=== PATIENT | female | born 1970 | race African-American/Black ===

== ENCOUNTER 2018-10-20 04:05 | Inpatient (IN) ==
[2018-10-20] MEDS ORDERED: FENTANYL IV ONE ×2 (04:43→06:30)
--- NOTE | 2018-10-20 04:48 | PROVIDER DOCUMENTATION ---
HPI-General Adult - General Chief Complaint: Chest Pain Stated Complaint: CHEST PAIN, TINGLING IN ARM/FACE Time Seen by Provider: 10/20/18 04:29 Source: patient Allergies/Adverse Reactions: Patient Allergies Allergy/AdvReac Type Severity Reaction Status Date / Time levofloxacin [From Levaquin] Allergy ITCHING Verified 07/26/17 14:20 morphine Allergy ITCHING Verified 07/26/17 14:20 Home Medications: Home Medication List Medication Instructions Recorded Confirmed Last Taken Type Cetirizine HCl [Zyrtec] 10 mg PO QAM 08/20/15 07/26/17 10/09/16 History Furosemide [Lasix] 20 mg PO QAM 08/20/15 07/26/17 10/09/16 History Losartan [Cozaar] 50 mg PO DAILY 08/20/15 07/26/17 10/09/16 History Tizanidine [Zanaflex] 4 mg PO PRN PRN 08/20/15 07/26/17 03/25/16 History Omeprazole 40 mg PO DAILY #30 capsule. 06/18/16 07/26/17 10/09/16 Rx Ascorbate Calcium [Vitamin C] 1 tab PO BID 10/09/16 07/26/17 10/09/16 History Azathioprine 2 tab PO DAILY 10/09/16 07/26/17 10/09/16 History Bisoprolol/Hctz [Ziac 5/6.25 mg] 1 tab PO DAILY 10/09/16 07/26/17 10/09/16 History Budesonide [Budesonide EC] 3 tab PO DAILY 10/09/16 07/26/17 10/09/16 History Butalb/Acetaminophen/Caffeine 1 each PO BID PRN #15 capsule 10/09/16 07/26/17 Unknown Rx [Fioricet 50-300-40 mg Capsule] Cyanocobalamin/Cobamamide [B12 1 tab PO DAILY 10/09/16 07/26/17 10/09/16 History 5,000 Mcg Microlozenge] Cyclobenzaprine [Flexeril] 1 tab PO PRN PRN 10/09/16 07/26/17 10/09/16 History Dicyclomine [Bentyl] 2 tab PO Q8H 10/09/16 07/26/17 10/09/16 History Dicyclomine [Bentyl] 20 mg PO TID AC PRN #20 capsule 10/09/16 07/26/17 Unknown Rx Ergocalciferol (Vitamin D2) 1 tab PO DIRECTED 10/09/16 07/26/17 Unknown History [Vitamin D2] Etodolac 1 tab PO BID 10/09/16 07/26/17 10/09/16 History Ferrous Sulfate 5 tab PO BID 10/09/16 07/26/17 10/09/16 History Folic Acid 1 tab PO DAILY 10/09/16 07/26/17 10/09/16 History Hyoscyamine Subl [Levsin-Sl] 1 tab PO Q8H 10/09/16 07/26/17 10/09/16 History Linaclotide [Linzess] 1 cap PO DAILY 10/09/16 07/26/17 10/09/16 History Meloxicam 1 tab PO DAILY 10/09/16 07/26/17 10/09/16 History Ondansetron Odt [Zofran 8Mg Odt] 8 mg PO Q8H PRN PRN #20 tablet 10/09/16 07/26/17 Unknown Rx Ondansetron [Zofran] 1 - 2 tab PO PRN PRN 10/09/16 07/26/17 10/08/16 History Phentermine HCl 1 tab PO BID 10/09/16 07/26/17 10/09/16 History Amoxicillin/Potassium Clav 1 each PO TID #30 tablet 10/29/16 07/26/17 Unknown Rx [Augmentin 875-125 Tablet] Hydrocodone/Acetaminophen [[place] 1 each PO Q4-6H PRN PRN #20 tablet 10/29/16 07/26/17 Unknown Rx 7.5-325 Tablet] Albuterol [Albuterol Neb] 2.5 mg INH Q4H PRN PRN #1 neb 06/27/17 07/26/17 Unknown Rx Prednisone 20 mg PO DIRECTED #18 tab 06/27/17 07/26/17 Unknown Rx - History of Present Illness -Gen Adult Nature of Presenting Problems: Pt presents with cp and left sided facial and left arm parathesias, pt reports she went to bed at 7p, awoke with cp, left sided, sharp to pressure, constant, no radiation, no prior, pt also reports left facial and left arm tingling, constant, feels similar to when he had head bleed in 2012, pt denies f/c, hartmann, sob, cough, ap, n/v/d. Pt is lying in bed in no acute distress. Location of Pain/Injury: reports: chest Pain Radiation: reports: no radiation Quality of Pain: reports: pressure, sharp Severity: reports: mild Onset/Duration: reports: 4-6 hours ago Timing: reports: still present Context/Activities at Onset: reports: none Modifying Factors: improves with: nothing Associated Symptoms: reports: denies symptoms Similar Symptoms Previously?: Yes Recently seen or treated by another doctor?: No Review of Systems - Adult - REVIEW OF SYSTEMS - ADULT Constitutional: reports: no symptoms reported Eyes: reports: no symptoms reported Ears, Nose, Mouth & Throat: reports: no symptoms reported Cardiovascular: reports: see HPI Respiratory: reports: no symptoms reported Gastrointestinal: reports: no symptoms reported Genitourinary: reports: no symptoms reported Musculoskeletal: reports: no symptoms reported Integumentary: reports: no symptoms reported Neurological: reports: see HPI Psychiatric: reports: no symptoms reported Endocrine: reports: no symptoms reported Hematologic/Lymphatic: reports: no symptoms reported Allergic/Immunologic: reports: no symptoms reported All Other Systems: Reviewed and Negative Past History - Adult - PAST MEDICAL HISTORY-ADULT Review of Records: reports: Old Records Reviewed, Nursing Assessment Review, Medications Reviewed, Social history reviewed & non-contributory. Major Childhood Illnesses: reports: other (hydrocephalus) Cardiovascular: reports: denies history Respiratory: reports: denies history Gastrointestinal: reports: IBS Obstetrical/Gynecological: reports: denies history Genitourinary: reports: denies history Musculoskeletal: reports: denies history Neurological: reports: headaches/migraines, other (hydrocephalus with right temporal shunt) Psychiatric: reports: denies history Endocrine/Immune: reports: denies history Sickle Cell Genotype:: Other (sickle trait) Other Conditions: reports: denies history - PRIOR SURGERIES/PROCEDURES Surgical/Procedure History: reports: appendectomy, hysterectomy, BTL, tonsillectomy, other (shunt for hydrocephalus) - PRIOR HOSPITALIZATIONS Prior Hospitalizations: reports: none - IMMUNIZATION STATUS Childhood Immunizations: See Nurse Assessment Flu Vaccine: See Nurse Assessment - FAMILY HISTORY Family History: reviewed, not pertinent Physical Exam-General - PHYSICAL EXAM-ADULT Initial Vital Signs Reviewed: Yes - CONSTITUTIONAL General Appearance: appears well - EYES Eyes: PERRL/EOMI - HEAD, EARS, NOSE, MOUTH & THROAT HENMT: normal ENT inspection - NECK Neck: normal inspection - RESPIRATORY Respiratory: no respiratory distress, no accessory muscle use - CARDIOVASCULAR Cardiovascular: regular rate, rhythm - GASTROINTESTINAL (ABDOMEN) Abdominal Exam: non tender, soft - LYMPHATIC Lymphatic: no adenopathy - MUSCULOSKELETAL Back Exam: normal inspection Extremity: normal range of motion - SKIN Integumentary: normal color - NEUROLOGIC Neurologic: zipper slide attacher II-XII nml as tested, grossly normal, sensory deficit (left face and left arm) - PSYCHIATRIC Psych/Mental Status: normal mood/affect Progress - PLAN OF CARE/RESULTS Progress/Plan/Lab Results: Vital Signs - 8 hr 10/20/18 04:12 Temperature 97.4 F L Pulse Rate 91 H Respiratory Rate 18 Blood Pressure 147/104 O2 Sat by Pulse Oximetry 98 Orders Category Date Time Status CT HEAD W/O CONTRAST [CT] Stat Exams 10/20/18 04:42 Ordered cxr [CHEST-1 VIEW] [RAD] Stat Exams 10/20/18 04:41 Ordered CBC WITH ELECTRONIC DIFF [HEME] Stat Lab 10/20/18 04:41 Uncollected COMPREHENSIVE METABOLIC PANEL [CHEM] Stat Lab 10/20/18 04:41 Uncollected PRO B-NATRIURETIC PEPTIDE Stat Lab 10/20/18 04:41 Uncollected PROTIME WITH INR [COAG] Stat Lab 10/20/18 04:41 Uncollected PTT [COAG] Stat Lab 10/20/18 04:41 Uncollected TROPONIN T Stat Lab 10/20/18 04:41 Uncollected Fentanyl Med 10/20/18 04:43 Once 50 microgm IV NOW ONE EKG [EKG] Stat Ther 10/20/18 04:19 Ordered Result Diagrams: 10/20/18 05:32 10/20/18 05:32 - REASSESSMENT Reassessment #1 Time Reassessed: 07:47 Status: unchanged - CONSULTS/PCP/HOSPITALIST Notification #1 *Consult/PCP/Hospitalist*: Dr. Kurtz Time Discussed: 09:11 Consult Disposition: Will see in ED (I spoke with Dr. Hart who stated Dr Kurtz would be the admitting doctor) Departure - Departure Date of Disposition Decision: 10/20/18 Time of Disposition Decision: 09:11 DIAGNOSIS: Stroke-like symptoms Disposition: ADMITTED INPATIENT 09 Certified Medical Emergency: Emergent Condition: Stable Referrals and Follow-Ups: Zora Madden [Primary Care Provider] - - Critical Care Note This patient required my direct & personal management of CC.: No Attestation - Physician/ SALINAS Attestation Patient care was provided by Advanced Practice Provider:: No The physician spent face to face time with patient:: Yes Advanced Practice Provider documentation review:: Supervising physician onsite and consulted in the evaluation and care of this patient. The physician did have a face to face encounter with the patient.
[2018-10-20 05:50] LABS: BASO# 0.03 X1000 (0.0-0.2); BASO% 0.3 % (0.0-0.8); EOS# 0.16 X1000 (0.0-0.7); EOS% 1.6 % (0.0-10.0); HEMATOCRIT 40.7 % (37.0-47.0); HEMOGLOBIN 13.7 g/dL (12.0-16.0); LYMPH# 3.05 X1000 (1.2-3.4); LYMPH% 30.5 % (20.5-51.1); MCH 28.7 PG (27-31); MCHC 33.7 g/dL (33-37); MCV 85.1 FL (81-99); MONO# 0.55 X1000 (0.11-0.59); MONO% 5.5 % (1.7-9.3); MPV 10.4 FL (7.4-10.4); NEUT# 6.22 X1000 (1.4-6.5); NEUT% 62.1 % (42.2-75.2); PLT 286 X1000 (130-400); RBC 4.78 XMIL (4.2-5.4); RDW 12.9 % (11.5-14.5); WBC 10.01 X1000 (4.8-10.8)
[2018-10-20 06:10] LABS: AGAP 10; ALB/GLOB RATIO 1.5; ALBUMIN 4.3 g/dL (3.5-5.0); ALKALINE PHOSPHATASE 81 U/L (32-104); BUN 13 mg/dL (8-22); CALCIUM 9.3 mg/dL (8.8-10.2); CHLORIDE 109 mmol/L (98-107); COSMO 287; CREATININE 0.8 mg/dL (0.5-0.9); ESTIMATED GFR > 60; GLUCOSE 99 mg/dL (70-104); GOT 14 U/L (10-30); GPT 16 U/L (10-36); POTASSIUM 3.9 mmol/L (3.5-5.1); SODIUM 144 mmol/L (136-145); TCO2 25 mmol/L (25-35); TOTAL PROTEIN 7.1 g/dL (6.3-8.3)
[2018-10-20 06:58] LABS: INR 0.99; PROTIME 13.9 Seconds (11.0-16.0)
[2018-10-20 07:03] LABS: PTT 35.2 Seconds (22.3-41.8)
--- NOTE | 2018-10-20 08:02 | Diag Imaging Result Doc PS360 ---
CT HEAD W/O CONTRAST - 10/20/2018 INDICATION: left facial and left arm parathesia, pmh hd bleed COMPARISON: 07/26/2017 FINDINGS: There is a stable right frontal ventriculostomy catheter terminating in the midline. The ventricles are stable in configuration. No intracranial mass or hemorrhage. The skull is intact. The sinuses are clear. IMPRESSION: No acute disease or change from prior. This exam was performed using automated exposure control, adjustment of mA or kV according to patient size, and/or use of iterative reconstruction technique Electronically signed by Benji Liu 10/20/2018 8:00 AM
--- NOTE | 2018-10-20 08:07 | Diag Imaging Result Doc PS360 ---
CHEST-1 VIEW - 10/20/2018 INDICATION: chest pain COMPARISON: 04/09/2018 FINDINGS: There is stable shunt catheter tubing along the right chest wall. The lungs are clear. Heart size is normal. No pneumothorax or pleural effusion. IMPRESSION: Negative exam. Electronically signed by Benji Liu 10/20/2018 8:04 AM
[2018-10-20] MEDS ORDERED: BENTYL PO PRN (12:36)
[2018-10-20] MEDS ORDERED: IMURAN PO PRN (12:36)
[2018-10-20 12:49] LABS: HEMOGLOBIN A1C 4.6 % (4.8-6.0)
--- NOTE | 2018-10-20 13:01 | HISTORY AND PHYSICAL ---
PRIMARY CARE PHYSICIAN: Dr. Zora Madden CHIEF COMPLAINT: Stroke-like symptoms and chest pain. HISTORY OF PRESENT ILLNESS: Ms. Robb is a 48-year-old female with a history of hydrocephalus with a [employer] shunt, hemorrhagic stroke, Crohn's disease and hypertension, who presents with acute onset of left facial numbness and tingling, left arm weakness and chest pain. Symptoms began last night initially with left facial numbness. She was actually sleeping and woke up with the symptoms at around 10:00 last night followed by a midsternal chest pain radiating up into the left neck followed by a left arm weakness. She ultimately decided to come to the ER for evaluation. She denies any recent exertional chest pain or dyspnea. No lower extremity edema and no orthopnea. She denies any fever, chills, cough or congestion. No diarrhea, hematemesis or hematochezia. In the ER, head CT was done, and it was found to be negative. Her laboratory data is completely unremarkable. On physical exam, she does not have any facial drooping. Her speech is clear, and she is oriented. She reports left arm weakness; however, her strength is 5/5 in all extremities. Given the symptoms, we will admit her for observation status. PAST MEDICAL HISTORY: 1. History of hydrocephalus, status post [employer] shunt. 2. History of hemorrhagic stroke about 9 years ago with no recurrence. Important to note that the bleed was a few months after her [employer] shunt was placed, so it is unclear if she actually had a true stroke or if this was a complication of the [employer] shunt. 3. Hypertension. 4. Well controlled asthma. 5. Crohn's disease. PAST SURGICAL HISTORY: She has had a [employer] shunt, sinus surgery, tubal ligation, hysterectomy, appendectomy, tonsillectomy. SOCIAL HISTORY: She does not smoke, drink or use tobacco products. Her is at the bedside. FAMILY HISTORY: Both parents alive, both with hypertension. REVIEW OF SYSTEMS: A 14-point review of systems obtained and found to be negative with the exception of the HPI. ALLERGIES: Levaquin and morphine. HOME MEDICATIONS: Home medications have not been compiled. We will reconcile appropriately once they have been placed in the computer. PHYSICAL EXAMINATION: VITAL SIGNS: Blood pressure is 139/104, heart rate is 90, respiratory rate 16, O2 saturation is 96% on room air. Temperature is 97.4. GENERAL: This is an obese female lying in hospital bed in no acute distress. NEUROLOGICAL: The patient is awake and alert. She follows commands. No focal deficits are noted. HEENT: Head is atraumatic and normocephalic. Pupils are equal, round and reactive to light. Oral mucosa is moist. NECK: Trachea is midline. There is no JVD. CHEST: Clear to auscultation. CARDIOVASCULAR: Regular rate and rhythm. S1 and S2 noted. There are no murmurs. GASTROINTESTINAL: Soft, nondistended and nontender. Bowel sounds positive. EXTREMITIES: No edema. Pulses 1+ bilaterally. DIAGNOSTIC DATA: Head CT is negative. Chest x-ray shows shunt catheter tubing along the right chest wall. EKG is pending. Laboratory data reviewed and completely unremarkable. ASSESSMENT AND PLAN: 1. Subjective stroke-like symptoms. The patient's physical exam is benign. Head CT does not show anything acute, but she is reporting left facial numbness and left arm weakness. We will order neuro checks, aspirin, echocardiogram, carotid ultrasound and brain MRI in the morning. We will allow for permissive hypertension to a certain degree given her history of cerebral hemorrhage. 2. Chest pain, atypical. Awaiting EKG. First set of troponins is negative. We will continue to trend her troponins, check an echocardiogram and continue aspirin. Check lipid panel and hemoglobin A1c in the morning. 3. History of hydrocephalus with [employer] shunt, stable. 4. Hypertension. Please see numbers 1 and 2. 5. History of brain bleed, aware. Head CT is negative. Unclear if her bleed was secondary to true hemorrhagic stroke or complications from [employer] shunt. 6. DVT prophylaxis with SCDs. Further recommendations to follow. Dictated by AARON Barron for Jonas Perry MD Patient seen and examined by me face to face, all the laboratory, vitals signs, and images were reviewed, patient presented to the emergency department with left sided body numbness and tingling sensation, she has a history of hydrocephalus with [employer] shunt placement, an apparently has some kind of brain bleed before but long time ago, we will keep this patient in the hospital, aspirin and statins, MRI/MRA, echocardiogram and carotid US, neuro evaluation, physical exam is benign, I agree with the DIRECTOR OF THERAPY SERVICES's assessment and plan, Jonas Sofia MD cc: AARON Barron MD [facility]
[2018-10-20 13:21] LABS: FREE T4 1.21 ng/dL (0.93-1.70); TSH 1.43 uIUmL (0.27-4.20)
--- NOTE | 2018-10-20 14:00 | ECHO REPORT ---
ORDER DATE: 10/20/2018 INDICATION: CVA-like symptoms, chest pain, hypertension. FINDINGS: 1. The right atrium appears normal in size. 2. Mild tricuspid regurgitation. Insufficient data to estimate RV systolic pressure. 3. Normal RV size and systolic function. 4. No significant pulmonic insufficiency. 5. Normal left atrial size with a volume index of 17.8 and a dimension of 2.9 cm. 6. No mitral valve prolapse. Trace mitral regurgitation. 7. Normal LV size, end-diastolic dimension of 4.6. Normal wall thicknesses with a posterior and interventricular septal wall thickness of 1.0 and 1.1 cm respectively. Normal LV systolic function with an estimated EF of 60% to 65% with normal wall motion. 8. Aortic valve opens well. It is trileaflet. No evidence of stenosis or insufficiency. 9. The aorta appears normal on visualized segments. 10. No pericardial effusion seen. cc: MD Rory Walker CRNP
[2018-10-20] MEDS: FOLIC ACID PO SCH (14:16)
[2018-10-20] MEDS: ASPIRIN PO SCH (14:16)
[2018-10-20] MEDS: LINZESS PO SCH (14:16)
[2018-10-20] MEDS: LASIX PO SCH (14:17)
[2018-10-20] MEDS: COZAAR PO SCH (14:17)
[2018-10-20] MEDS: ENTOCORT EC PO SCH (15:21)
[2018-10-20] MEDS: VITAMIN C PO SCH (20:00)
[2018-10-20] MEDS: FERROUS SULFATE PO SCH (20:00)
[2018-10-21] MEDS: DEPAKOTE ER PO SCH (06:49)
[2018-10-21 07:34] LABS: HEMATOCRIT 41.3 % (37.0-47.0); HEMOGLOBIN 13.8 g/dL (12.0-16.0); MCH 28.6 PG (27-31); MCHC 33.4 g/dL (33-37); MCV 85.7 FL (81-99); MPV 10.6 FL (7.4-10.4); RBC 4.82 XMIL (4.2-5.4); WBC 11.63 X1000 (4.8-10.8)
[2018-10-21 07:45] LABS: AGAP 10; BUN 15 mg/dL (8-22); CALCIUM 9.4 mg/dL (8.8-10.2); CHLORIDE 108 mmol/L (98-107); COSMO 286; CREATININE 0.8 mg/dL (0.5-0.9); ESTIMATED GFR > 60; GLUCOSE 93 mg/dL (70-104); MAGNESIUM 2.3 mg/dL (1.5-2.7); POTASSIUM 4.1 mmol/L (3.5-5.1); SODIUM 143 mmol/L (136-145); TCO2 25 mmol/L (25-35)
--- NOTE | 2018-10-21 08:21 | EKG Report ---
Test Performed on : 10/20/2018 04:25:08 AM Test Reason : chest pain Blood Pressure : / mmHG Vent. Rate : 087 BPM Atrial Rate : 087 BPM P-R Int : 156 ms QRS Dur : 074 ms QT Int : 394 ms P-R-T Axes : 049 002 013 degrees QTc Int : 474 ms Normal sinus rhythm. Moderate voltage criteria for LVH, may be normal variant Borderline ECG When compared with ECG of 26-JUN-2017 23:07, ST elevation now present in Lateral leads Nonspecific T wave abnormality has replaced inverted T waves in Lateral leads Unconfirmed Result
[2018-10-21] MEDS ORDERED: DEPAKOTE ER PO SCH (09:00)
--- NOTE | 2018-10-21 09:46 | Diag Imaging Result Doc PS360 ---
EXAM: MRA NECK W/O CONT 10/20/2018 HISTORY: R/O Stroke TECHNIQUE: 3-D contrast enhanced MRA. COMMENT: There is opacification of both vertebral arteries. Both subclavian and common carotid arteries are opacified. The internal carotid arteries are somewhat tortuous. There is no evidence of significant stenosis. IMPRESSION: No evidence of stenosis. Electronically signed by Billy Carr 10/21/2018 9:44 AM
[2018-10-21] MEDS: ASPIRIN PO SCH (09:58)
[2018-10-21] MEDS: VITAMIN D PO SCH (09:58)
[2018-10-21] MEDS: LINZESS PO SCH (09:58)
[2018-10-21] MEDS: LASIX PO SCH (09:58)
[2018-10-21] MEDS: ZIAC 5/6.25 MG PO SCH ×2 (09:58→10:05)
--- NOTE | 2018-10-21 09:59 | Diag Imaging Result Doc PS360 ---
EXAM: MRI BRAIN W/CONTRAST 10/20/2018 HISTORY: R/O Stroke TECHNIQUE: T1 sagittal, axial and post gadolinium-enhanced axial with coronal reformation, T2, FLAIR, DWI axial and coronal gradient echo. COMMENT: There is metallic artifact obscuring portions of the right posterior frontal and anterior parietal lobes. This was also the case on 05/13/2013. There is a shunt catheter on the right passing into the right frontal horn and terminating near the foramen of [place]ito. This was also the case previously. The posterior lateral ventricles are enlarged but not as enlarged as on the previous study. There is no evidence of restricted diffusion. There is some apparent hyperostosis in the inner table over the frontoparietal region on the left. This is more conspicuous than on the previous MRI study. It is not significantly changed from the CT of 10/20/2018. There is a similar degree of hyperostosis on the right side near the penetration of the shunt catheter. There is no evidence of mass effect. There is some pachymeningeal enhancement generally. This is a nonspecific finding and the previous study was performed without contrast. It is possible this is associated with intracranial hypotension. No intramedullary abnormal enhancement is present. IMPRESSION: Diminished ventriculomegaly and pachymeningeal enhancement, possibly as a result of decreased intracranial pressure. Otherwise no evidence of acute intracranial disease. Electronically signed by Billy Carr 10/21/2018 9:57 AM
[2018-10-21] MEDS: COZAAR PO SCH (10:01)
[2018-10-21] MEDS: FERROUS SULFATE PO SCH ×2 (10:01→20:01)
[2018-10-21] MEDS: VITAMIN C PO SCH ×2 (10:01→20:01)
[2018-10-21] MEDS: FOLIC ACID PO SCH (10:02)
[2018-10-21] MEDS: ZYRTEC PO SCH (10:02)
[2018-10-21] MEDS: ENTOCORT EC PO SCH (10:14)
--- NOTE | 2018-10-21 10:30 | Diag Imaging Result Doc PS360 ---
EXAM: MRA BRAIN W/CONTRAST 10/20/2018 HISTORY: R/O stroke TECHNIQUE: MRI of the brain, 3-D [id number] COMMENT: There is no evidence of major branch occlusion or aneurysm. Both posterior communicating arteries are demonstrated. There are no other definite arterial abnormalities. IMPRESSION: Normal MRA of the brain. Electronically signed by Billy Carr 10/21/2018 10:28 AM
--- NOTE | 2018-10-21 13:38 | CONSULTATION ---
DATE OF CONSULTATION: 10/21/2018 REASON FOR CONSULT: Stroke versus TIA. HISTORY OF PRESENT ILLNESS: This is a 48-year-old female with a history of shunted hydrocephalus, Crohn's disease and hypertension who was admitted yesterday. History is from the patient and attentive mother. The patient reports she woke up around 11 p.m. on Sunday and had some tingling sensation involving the whole left side of the face and forehead, as well as her left upper extremity. She was having sharp chest pain as well. She went back to sleep and awoke again in the early hours of Sunday morning and the symptoms had persisted. She decided to go to the emergency department. She denies headache, visual changes or other focal neurologic symptoms. She did not have fever or chills. She may have had some weakness of her left arm or possibly just paresthesias. The symptoms occurred in episodes lasting 6 minutes in duration repeatedly until about midday yesterday. She has not had recurrent symptoms since that time. There was no loss of consciousness. No overt seizure activity. Head CT on arrival did not show acute findings. MRI of the brain today showed improved ventriculomegaly and some pachymeningeal enhancement possibly as a result of decreased intracranial pressure but no evidence of acute disease. No evidence of ischemic stroke. Currently the patient complains of a mild headache and relays this headache as being similar to her chronic migraine headaches. She follows with Dr. Carmona for her migraines and does receive Botox approximately every few months. She is due in the next week or 2 for her Botox injections and says that is typical for her headaches to become more frequent in this time leading up to her next injection. PAST MEDICAL HISTORY: 1. Shunted hydrocephalus. She reports having hydrocephalus with shunt as an infant with recurrence of issues in 2010 and new shunt placed. She had followed with Dr. Lake in [place]. 2. History of subdural hematoma in 2010 when shunt valve was set to 1; subsequently set to 2 3. Hypertension. 4. Crohn's disease followed by Dr. Marion Sandoval. 5. Tubal ligation. 6. Hysterectomy. FAMILY HISTORY: Positive for hypertension. SOCIAL HISTORY: No tobacco, alcohol or illicits. She has 2 sons. She does not work. ALLERGIES: Listed to Levaquin and morphine. MEDICATIONS: Reviewed in the chart and include: 1. Imuran for Crohn's disease. 2. Multivitamins. 3. Depakote ER 1000 mg daily for migraine. 4. She receives Botox injections for migraine. REVIEW OF SYSTEMS: Balance of 12 was conducted and is otherwise negative except that detailed in the HPI. PHYSICAL EXAMINATION: Vital Signs: Afebrile. Blood pressure 147/104 on admission. Current 116/76, pulse 80s to 90s. Respirations 20, 100% on room air. Ms. Robb is supine in bed with head of bed elevated. She is awake, alert, fully oriented. Language function intact on bedside testing, no dysarthria. She is spontaneous and cooperative. Attention and concentration intact. Pupils are equal, round, and reactive. Gaze is conjugate. Extraocular movements are full. Visual willard intact to direct confrontational testing. She can hear, face symmetric with equal activation. Facial sensation reported intact, tongue is midline. Palate elevates symmetrically. Shoulder shrug is full. No drift. Tone is equal in the limbs. Strength is well preserved in the arms and legs. She reports symmetric sensation in the arms and legs. Reflexes trace at the ankles and wrists bilaterally. No clonus. Plantar response is downgoing. [id number] and rapid alternating movements are intact. I did not test her gait. DIAGNOSTICS: As per above MRI of the brain was personally reviewed. MRA of the brain and neck are negative. Sodium of 143, BUN, creatinine, AST, ALT normal. A1c of 4.6. Triglycerides 112, cholesterol 181, LDL 128, HDL 49. ASSESSMENT AND PLAN: Subjective sense of paresthesias on the left face and arm and possibly a sense of weakness of the left arm associated with chest pain, uncertain etiology. Currently asymptomatic for approaching 24 hours. Agree with the workup as you are doing. Agree with stroke risk factor modification including statin therapy for her elevated cholesterol levels. There is a question of pachymeningeal enhancement on the MRI possibly related to decreased intracranial pressure. Unfortunately we do not have previous contrasted studies for comparison. She may benefit from followup with Dr. Lake as an outpatient. While I believe this is unrelated to her current presentation, I wonder if it might be related to her chronic headaches. She has been encouraged to keep her follow up with Dr. Carmona on October 28 and they can discuss this. I am going to order a routine EEG. Thank you for the consultation. cc: Lizett Brown MD MTDD
--- NOTE | 2018-10-21 14:00 | PROGRESS NOTE ---
DATE: 10/21/2018 SUBJECTIVE: No acute events overnight. This patient is still complaining of some numbness at the level of the left side, mostly her face, but her weakness improved. That apparently happened yesterday at home and has resolved. She is also complaining of some headache. OBJECTIVE: Vital Signs: Temperature 97.9 degrees, pulse 81, respiratory rate 20, blood pressure 116/76. Oxygen saturation 100% on room air. HEENT: Head normocephalic. No trauma. PERRLA. Neck: Supple. No JVD. No masses. Central trachea. Chest: Clear to auscultation. No wheezing. No rales. Abdomen: Soft, nontender, nondistended. No hepatosplenomegaly. Extremities: No edema. No clubbing. No cyanosis. Neurological: This patient is awake, alert. She is following commands. No focal deficits noted. LABORATORY: WBC 11.6, hemoglobin 13.8, hematocrit 41.3, platelets 303,000. Sodium 143, potassium 4.1, chloride 108, bicarbonate 25, BUN 15, creatinine 0.8, glucose 93, calcium 9.4, magnesium 2.3. Troponins negative x3. ASSESSMENT AND PLAN: 1. Possible transient ischemic attack in a patient with subjective stroke-like symptoms. We have placed this patient on aspirin, but as per the patient, I think in 2011, she had a hemorrhagic brain lesion I believe due to her condition. She has a history of hydrocephalus with a BRANCH OFFICER shunt placed. I will let Neurology Department evaluate this patient and decide if he she needs aspirin. Her lipid profile came back. The cholesterol level is around 181 with an LDL level of 128. For now I will just monitor, but I will add statins if Neurology Department recommend it. MRI of the brain, MRA of the brain and neck negative for an acute process. Echocardiogram looks fine pending carotid ultrasound. I believe this patient can be discharged in the next 24 hours after Neurology evaluation and all the results. 2. Chest pain, atypical, negative troponins. Today, she is not complaining of chest pain. 3. History of hydrocephalus with BRANCH OFFICER shunt, stable. 4. Hypertension. We will monitor. 5. History of brain bleed, aware. CT scan negative as well as the MRI. I am not quite sure if that bleed was related to a hemorrhagic stroke or a complication of BRANCH OFFICER shunt. She was placed on aspirin. We will just monitor, but we will stop it if Neurology Department recommends it. 6. Deep vein thrombosis prophylaxis with SCDs. cc: Jonas Perry MD
[2018-10-21] MEDS: LIPITOR PO SCH (20:03)
[2018-10-22 07:17] LABS: HEMATOCRIT 43.2 % (37.0-47.0); HEMOGLOBIN 14.3 g/dL (12.0-16.0); MCH 29.1 PG (27-31); MCHC 33.1 g/dL (33-37); MCV 87.8 FL (81-99); MPV 10.4 FL (7.4-10.4); RBC 4.92 XMIL (4.2-5.4); RDW 13.4 % (11.5-14.5); WBC 12.6 X1000 (4.8-10.8)
[2018-10-22 07:38] LABS: AGAP 8; BUN 17 mg/dL (8-22); CALCIUM 9.3 mg/dL (8.8-10.2); CHLORIDE 110 mmol/L (98-107); COSMO 290; CREATININE 0.9 mg/dL (0.5-0.9); ESTIMATED GFR > 60; GLUCOSE 86 mg/dL (70-104); MAGNESIUM 2.3 mg/dL (1.5-2.7); SODIUM 145 mmol/L (136-145); TCO2 27 mmol/L (25-35)
[2018-10-22] MEDS: LINZESS PO SCH (10:00)
[2018-10-22] MEDS: ASPIRIN PO SCH (10:00)
[2018-10-22] MEDS: ZIAC 5/6.25 MG PO SCH (10:00)
[2018-10-22] MEDS: ENTOCORT EC PO SCH (10:00)
[2018-10-22] MEDS: FOLIC ACID PO SCH (10:00)
[2018-10-22] MEDS: DEPAKOTE ER PO SCH (10:01)
[2018-10-22] MEDS: LASIX PO SCH (10:02)
[2018-10-22] MEDS: ZYRTEC PO SCH (10:02)
[2018-10-22] MEDS: VITAMIN C PO SCH ×2 (10:02→21:36)
[2018-10-22] MEDS: FERROUS SULFATE PO SCH ×2 (10:02→21:36)
[2018-10-22] MEDS: COZAAR PO SCH (10:18)
--- NOTE | 2018-10-22 12:15 | EEG REPORT ---
DATE: 10/21/2018 REFERRING PHYSICIAN: Lizett Brown MD JIGMAKER: Yuli Cervantes BACKGROUND INFORMATION AND TECHNIQUE: This is a digitally recorded routine EEG with video. HISTORY: A 48-year-old female with shunted hydrocephalus, admitted with multiple brief periods of left facial and arm paresthesias. EEG is ordered to detect evidence of seizures. MEDICATIONS: Include Depakote. ELECTROENCEPHALOGRAPHIC FINDINGS: Well-formed 9 Hz posterior dominant alpha rhythm is seen symmetrically in the occipital regions and attenuates with eye opening. The anterior background at maximal alertness consists of mixed alpha and beta range frequencies. No definite persistent focal slowing. No epileptiform discharges. No seizures. Hyperventilation induces mild diffuse physiologic slowing. Photic stimulation induces a normal driving response. The patient is drowsy often and enters into stage II sleep with qualitatively normal sleep architecture. EKG demonstrates regular RR intervals. IMPRESSION AND CLINICAL CORRELATION: Normal routine EEG in the awake and mostly drowsy or sleep states. Of note, a normal EEG does not rule out epilepsy. Clinical correlation is recommended. cc: Lizett Brown MD
--- NOTE | 2018-10-22 16:18 | Carotid Study ---
DATE: 10/20/2018 PROCEDURE: Bilateral carotid duplex imaging. REFERRING PHYSICIAN: Jonas Perry MD. INTERPRETING PHYSICIAN: Iraj De Leon MD. TECH: [place]. INDICATIONS: Stroke-like symptoms, left side numbness face and arm. OBSERVED DATA RIGHT LEFT Brachial Blood Pressure Carotid Pulse Bruits: Carotid/Sub DIAGRAM OF ULTRASOUND IMAGING R L RIGHT INT EXT INT EXT LEFT Harpreet (cm/s) Harpreet (cm/s) Subclavian 81/9 Subclavian 96/0 CCA Proximal 113/27 CCA Proximal 106/32 CCA Distal 98/25 CCA Distal 97/30 Bulb 94/29 Bulb 89/34 ICA Proximal 56/15 ICA Proximal 65/31 ICA Mid 55/24 ICA Mid 55/26 ICA Distal 86/42 ICA Distal 74/31 ECA 54/8 ECA 88/17 Vertebral 38/9 A Vertebral 63/25 A ICA/CCA Ratio 0.76 ICA/CCA Ratio 0.69 % Stenosis 0-39% % Stenosis 0-39% FINDINGS: No significant atherosclerotic change noted in bilateral carotid artery systems. cc: MD Rory Bustos CRNP
--- NOTE | 2018-10-22 16:30 | PROGRESS NOTE ---
DATE: 10/22/2018 SUBJECTIVE: 1. This is a 48-year-old female, and she was admitted complaining of numbness on the left side of her face, I think in her left leg as well. She also was complaining of some headache and concerned about a possible transient ischemic attack. Placed on some aspirin. In 2011 she had a hemorrhagic brain lesion believed due to this, and she has a history of hydrocephalus following that. 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 Lipid profile came back and LDL was 128, total cholesterol 181. MRI and MRA of the brain came back negative for any acute process. I think she had an EEG done. Echocardiogram looked good and carotid ultrasound pending. She feels good and no new focal complaints. I think she would like to get the results of these studies; if they are negative, would like to go home. 2. Chest pain, atypical. Negative troponins. No sign of cardiac ischemia. 3. History of hydrocephalus with CARBON COATING MACHINE OPERATOR stent, stable. 4. Hypertension. 5. History of brain bleed. CT scan was negative, as well as MRI. So, she will be on aspirin. CURRENT ORDERS: Lipitor 20 mg at bedtime, ascorbic acid 500 mg b.i.d., aspirin 325 mg a day, Imuran 100 mg p.o. daily, Budesonide ER 9 mg daily, Zyrtec 10 mg q.a.m., Depakote ER 1000 mg daily, ergocalciferol 50,000 units on Sunday and Sunday, ferrous sulfate 325 mg b.i.d., folic acid 1 mg a day, Lasix 20 mg q.a.m., Linzess 145 mcg daily, Cozaar 50 mg a day. Her blood pressures look optimal and her lab work has been reviewed as unremarkable, so we will see what the results of her studies are. She may get to go home tomorrow. cc: Andres Gallego MD
--- NOTE | 2018-10-22 16:50 | PROGRESS NOTE ---
DATE: 10/22/2018 SUBJECTIVE: No major overnight events. OBJECTIVE: She remains afebrile, blood pressure 132/72, pulse 80s to 90s. Ms. Robb is supine in bed. She is awake and alert and oriented. She sits up during my time at the bedside. She follows simple commands and complex ones. Pupils are equal and reactive. Gaze is conjugate. She has full lateral eye movements. Face symmetric with equal activation. Moves extremities symmetrically without obvious focal deficit. DIAGNOSTICS: Routine EEG was personally reviewed. It is normal in the awake and mostly drowsy and sleep states. ASSESSMENT AND PLAN: Paresthesias involving the left face and arm, plus or minus left arm weakness, associated with chest pain. She has not had further symptoms. The workup has been unrevealing. I think it is reasonable to continue her on a low-dose aspirin daily with food and to modify her risk factors as mentioned in my prior note. Otherwise, there are no further recommendations to add to my note from yesterday. Thank you for the consultation. cc: Lizett Brown MD
[2018-10-22] MEDS: LIPITOR PO SCH (21:36)
[2018-10-23] MEDS: ZYRTEC PO SCH (08:49)
[2018-10-23] MEDS: DEPAKOTE ER PO SCH (08:49)
[2018-10-23] MEDS: LASIX PO SCH (08:49)
[2018-10-23] MEDS: ENTOCORT EC PO SCH (08:50)
[2018-10-23] MEDS: LINZESS PO SCH (08:50)
[2018-10-23] MEDS: VITAMIN C PO SCH (08:50)
[2018-10-23] MEDS: VITAMIN D PO SCH (08:50)
[2018-10-23] MEDS: ZIAC 5/6.25 MG PO SCH (08:50)
[2018-10-23] MEDS: ASPIRIN PO SCH (08:50)
[2018-10-23] MEDS: FERROUS SULFATE PO SCH (08:50)
[2018-10-23] MEDS: COZAAR PO SCH (08:50)
[2018-10-23] MEDS: FOLIC ACID PO SCH (08:50)
--- NOTE | 2018-10-23 12:01 | PROGRESS NOTE ---
DATE: 10/23/2018 Ms. Robb reports a period of odd feeling with tingling in the left limbs for several hours, several days ago. Symptoms have resolved completely and have not recurred. She has had some headache but nothing more than what she has experienced many times before. There was no definite vision disturbance, no altered awareness or memory gap, no collapse. Workup includes imaging showing nothing remarkable, shunt appears stable. Carotid ultrasound was unremarkable. EEG was normal. Systolic blood pressures have been stable, 100s-130s. She has started daily aspirin here and is tolerating that. I do not have any new suggestion or anything to add to Dr. Brown's recommendations earlier. I do not think this was likely a primary ischemic neurologic event. Migraine gets blame for odd symptoms sometimes. No evidence of seizure. She has longstanding followup with me as an outpatient and I will see her in the office soon. Thanks for asking neurology to see Ms. Robb. cc: Juice Carmona III, MD MTDD
[2018-10-23 14:35] VITALS: BP 132/72
--- NOTE | 2018-10-23 16:52 | DISCHARGE SUMMARY ---
ADMISSION DATE: 10/22/2018 DISCHARGE DATE: 10/23/2018 She is followed by Dr. Zora Madden. This is a 48-year-old female with a history of hydrocephalus and DEVELOPER PROGRAMMER shunt. She has had a history of hemorrhagic stroke, history of Crohn's disease, hypertension, presented with acute onset of left facial numbness, tingling, left arm weakness, and chest pain. Symptoms began the night before admission, and she had left facial numbness actually sleeping and woke up with symptoms about 10 o'clock that night, followed by midsternal chest pain radiating into her left neck, followed by arm weakness. Ultimately decided to go the emergency room. Denied any recent exertional chest pain or dyspnea. No lower extremity edema. No orthopnea. Denies any fever, chills, cough, or congestion. No diarrhea, hemoptysis, or hematochezia. In the emergency room, head CT was done and found to be negative. Laboratory data was completely unremarkable. On exam, she had facial drooping. Her speech was clear, though, and she was oriented x3. She reports left arm weakness, although strength seem to be 5/5 and equal in all extremities. PAST MEDICAL HISTORY: 1. History of hydrocephalus status post DEVELOPER PROGRAMMER shunt. 2. History of hemorrhagic stroke about 9 years ago. No sign of recurrence. The bleed was a few months after her DEVELOPER PROGRAMMER shunt, so it is unclear actually whether there was a true stroke or a complication from the DEVELOPER PROGRAMMER shunt. 3. Hypertension. 4. Well-controlled asthma. 5. Crohn's disease. Admitted with subjective stroke-like symptoms. CT scan did not show anything acute. She reports some left facial numbness, left arm weakness, but the physical exam could not appreciate true weakness. Carotid ultrasound and brain MRI were done. Carotid Doppler on 10/20/2018: No significant atherosclerotic disease. Echocardiogram with Doppler: Mild tricuspid regurgitation. Normal right ventricular size and systolic function. Normal left atrial size. Normal LV size and diastolic dimensions were normal. Ejection fraction 60% to 65%. Aortic valve opens well. Aorta appeared normal size. She had an electroencephalogram which was read as normal routine EEG with awake and mostly drowsy or asleep states. No sign of significant abnormality. In looking back, she had an odd feeling of tingling in the left limbs for several hours several days ago. Symptoms have resolved completely. She has had some headache, nothing more than she experiences many times. The EEG was normal. Carotid ultrasound unremarkable. So, we continued her daily aspirin, and Neurology does not think this is a primary ischemic event, possible atypical migraine, but will follow up with Neurology. Let her go home. DISCHARGE MEDICATIONS: Ascorbic acid 500 mg b.i.d., aspirin 325 mg a day, Lipitor 20 mg a day, Imuran 100 mg daily, Ziac 5/6.25 one a day, Entocort EC 9 mg daily, Zyrtec 10 mg q.a.m., Bentyl 20 mg p.o. t.i.d. p.r.n., Depakote ER 1000 mg daily, vitamin D 50,000 units Sunday, Wednesdays, and Fridays, ferrous sulfate 325 mg b.i.d., folic acid 1 mg daily, Lasix 20 mg q.a.m., Linzess 145 mg a day, Cozaar 50 mg a day. cc: Andres Gallego MD
== END 2018-10-23 17:23 | disposition home or self-care (01) | DRG 103 ==
LOC: 3N 04:05 → ED 04:05 → SUATTDRO 09:37
PROVIDERS: ATTEND Emergency Medicine
CPT/HCPCS: 70450; 70545; 70547; 70552; 71010; 71045; 80048; 80053; 80061; 82550; 82607; 82746; 83036; 83721; 83735; 83880; 84439; 84443; 84484; 85025; 85027; 85610; 85730; 93005; 93306; 93880; 95816; 99285; A9270; A9579; J3010

== ENCOUNTER 2019-05-11 10:02 | Inpatient (IN) ==
[2019-05-11] MEDS ORDERED: ASPIRIN PO ONE (10:22)
--- NOTE | 2019-05-11 10:36 | PROVIDER DOCUMENTATION ---
HPI-General Adult - General Chief Complaint: Chest Pain Stated Complaint: CHEST PAIN Time Seen by Provider: 05/11/19 10:10 Source: patient Allergies/Adverse Reactions: Patient Allergies Allergy/AdvReac Type Severity Reaction Status Date / Time levofloxacin [From Levaquin] Allergy ITCHING Verified 05/11/19 10:22 morphine Allergy ITCHING Verified 05/11/19 10:22 Home Medications: Home Medication List Medication Instructions Recorded Confirmed Last Taken Type Furosemide [Lasix] 20 mg PO QAM 08/20/15 05/11/19 1 Day Ago History ~10/19/18 Losartan [Cozaar] 50 mg PO DAILY 08/20/15 05/11/19 1 Day Ago History ~10/19/18 Bisoprolol/Hctz [Ziac 5/6.25 mg] 1 tab PO Q7D 10/09/16 05/11/19 1 Day Ago History ~10/19/18 Ferrous Sulfate 325 mg PO BID 10/09/16 05/11/19 1 Day Ago History ~10/19/18 Folic Acid 1 tab PO DAILY 10/09/16 05/11/19 1 Day Ago History ~10/19/18 Divalproex Sodium [Depakote ER] 500 mg PO BID 10/21/18 05/11/19 10/20/18 History Acetaminophen with Codeine 1 ea PO PRN PRN 05/11/19 05/11/19 Unknown History [Tylenol with Codeine #4 Tablet] Ascorbate Calcium [Vitamin C] 500 mg PO BID 05/11/19 05/11/19 Unknown History Azathioprine [Imuran] 50 mg PO BID 05/11/19 05/11/19 Unknown History Butalbital/Acetaminophen [Bupap 50 1 ea PO PRN PRN 05/11/19 05/11/19 Unknown History mg-300 mg Tablet] Cetirizine HCl [Zyrtec] 10 mg PO DAILY 05/11/19 05/11/19 Unknown History Cholecalciferol (Vit D3) [Vitamin 1,000 unit PO DIRECTED 05/11/19 05/11/19 Unknown History D] Glucosamine/D3/Boswellia Gabby 1 ea PO TID 05/11/19 05/11/19 Unknown History [Osteo Bi-Flex Tablet] Hydroxyzine [Atarax] 50 mg PO PRN PRN 05/11/19 05/11/19 Unknown History Magnesium Cl D.r. [Slow-Mag] 71.5 mg PO DAILY 05/11/19 05/11/19 Unknown History Omeprazole [Prilosec] 20 mg PO DAILY@0700 05/11/19 05/11/19 Unknown History Tizanidine HCl [Zanaflex] 4 mg PO Q4H PRN PRN 05/11/19 05/11/19 Unknown History Topiramate [Topamax] 200 mg PO DAILY 05/11/19 05/11/19 Unknown History - History of Present Illness -Gen Adult Nature of Presenting Problems: Patient is a non-toxic appearing 48 year old female who presents to the ER today with complaints of chest pain. She tells me the pain came on suddenly approximately 30 mins ago while she was moving around in her kitchen to cook breakfast. She states the pain is relieved some at rest. She s tates the pain is midsternal, with no radiation. She describes the pain as sharp in nature. She denies any SOB, headache, or dizziness. She states this has happened before around September of this year and she was admitted to the hospital for further evaluation and it was determined she had high cholesterol. She reports her PCP as Zora Madden. She tells me she takes Cozaar and Ziac daily for her HTN, but has not had any of her medications today. She also reports taking ASA 81 mg daily, but has not had her AM medications. Location of Pain/Injury: reports: chest (midsternal) Pain Radiation: reports: no radiation Quality of Pain: reports: sharp Severity: reports: moderate Onset/Duration: reports: abrupt, just prior to arrival Timing: reports: still present Context/Activities at Onset: reports: light activity Associated Symptoms: denies: arm pain, back/neck pain, diaphoresis, dizziness, headaches, shortness of breath, weakness Similar Symptoms Previously?: Yes (September 2018) Recently seen or treated by another doctor?: No Review of Systems - Adult - REVIEW OF SYSTEMS - ADULT Constitutional: reports: no symptoms reported Eyes: reports: no symptoms reported Ears, Nose, Mouth & Throat: reports: no symptoms reported Cardiovascular: reports: see HPI, chest pain. denies: orthopnea, palpitations, syncope Respiratory: denies: cough, shortness of breath, wheezing Gastrointestinal: denies: abdominal pain, frequent heartburn, nausea, vomiting Genitourinary: reports: no symptoms reported Musculoskeletal: reports: no symptoms reported Integumentary: reports: no symptoms reported Neurological: denies: dizziness/vertigo, headache/migraines, loss of balance, numbness, slurred speech Psychiatric: reports: no symptoms reported Endocrine: reports: no symptoms reported Hematologic/Lymphatic: reports: no symptoms reported Allergic/Immunologic: reports: no symptoms reported Past History - Adult - PAST MEDICAL HISTORY-ADULT Review of Records: reports: Old Records Reviewed, Nursing Assessment Review, Medications Reviewed, Social history reviewed & non-contributory. Major Childhood Illnesses: reports: other (hydrocephalus) Cardiovascular: reports: denies history Respiratory: reports: denies history Gastrointestinal: reports: IBS Obstetrical/Gynecological: reports: denies history Genitourinary: reports: denies history Musculoskeletal: reports: denies history Neurological: reports: headaches/migraines, other (hydrocephalus with right temporal shunt) Psychiatric: reports: denies history Endocrine/Immune: reports: denies history Sickle Cell Genotype:: Other (sickle trait) Other Conditions: reports: denies history - PRIOR SURGERIES/PROCEDURES Surgical/Procedure History: reports: appendectomy, hysterectomy, BTL, tonsillectomy, other (shunt for hydrocephalus) - PRIOR HOSPITALIZATIONS Prior Hospitalizations: reports: none - IMMUNIZATION STATUS Childhood Immunizations: See Nurse Assessment Flu Vaccine: See Nurse Assessment - FAMILY HISTORY Family History: reviewed, not pertinent - SOCIAL HISTORY Smoking: denies Living Situation: family Physical Exam-General - PHYSICAL EXAM-ADULT Initial Vital Signs Reviewed: Yes - CONSTITUTIONAL General Appearance: appears well, alert, obese, anxious (minimally anxious in regards to condition). negative: mild distress, moderate distress - HEAD, EARS, NOSE, MOUTH & THROAT HENMT: normocephalic/atraumatic - NECK Neck: non-tender, full range of motion, supple - RESPIRATORY Respiratory: chest non-tender, lungs clear, normal breath sounds - CARDIOVASCULAR Cardiovascular: normal peripheral pulses, regular rate, rhythm - GASTROINTESTINAL (ABDOMEN) Abdominal Exam: normal bowel sounds, non tender, soft - MUSCULOSKELETAL Back Exam: normal inspection Extremity: normal range of motion, non-tender, normal gait - SKIN Integumentary: normal color, normal turgor, warm/dry - NEUROLOGIC Neurologic: grossly normal - PSYCHIATRIC Psych/Mental Status: normal mood/affect, normal thought content, normal thought process, oriented x 3 Progress - PLAN OF CARE/RESULTS Progress/Plan/Lab Results: Vital Signs - 8 hr 05/11/19 10:06 Temperature 98.2 F Pulse Rate 88 Respiratory Rate 20 Blood Pressure 123/89 O2 Sat by Pulse Oximetry 96 Orders Category Date Time Status BASIC METABOLIC PANEL [CHEM] Stat Lab 05/11/19 10:27 Uncollected CBC WITH ELECTRONIC DIFF [HEME] Stat Lab 05/11/19 10:27 Uncollected CK PROFILE [SP CHEM] Stat Lab 05/11/19 10:22 Uncollected TROPONIN T Stat Lab 05/11/19 10:22 Uncollected Aspirin Med 05/11/19 10:22 Discontinued 325 mg PO NOW ONE EKG [EKG] Stat Ther 05/11/19 10:14 Ordered 1012: Cardiac heart score 4. POC reviewed with patient and familly, questions answered. 1225: PT had some relief after nitro spray, will order CXRAY then consult cardiology and hospitalist for possible hospital admission for observation. 1335: Notified Dr. Sebastian in regards to consult, agreed to consult states to notify service for patient to be seen tomorrow. Result Diagrams: 05/11/19 10:38 05/11/19 10:38 - XRAY 1 XRAY Study: Chest (EXAM: CHEST-1 VIEW HISTORY: chest pain, sob TECHNIQUE: Single view COMPARISON: 10/20/2018 FINDINGS: Poor inspiratory effort. The heart is not enlarged. The vessels are not distended. There are no infiltrates. No effusion identified. There is a right-sided ventricular peritoneal shunt catheter. IMPRESSION: Negative exam. Electronically signed by Migel Youssef 05/11/2019 12:54 PM) Impression: See EMR Report - CONSULTS/PCP/HOSPITALIST Notification #1 *Consult/PCP/Hospitalist*: Dr. Sebastian Time Discussed: 13:35 Reason/Comments: consult Consult Disposition: other (consult) #2 Consult: AARON Mejia hospitalist Time Discussed: 13:50 Reason/Comments: Admission Consult Disposition: Will see in ED, Admit Departure - Departure Date of Disposition Decision: 05/11/19 Time of Disposition Decision: 13:39 DIAGNOSIS: Hypernatremia Chest pain Qualifiers: Chest pain type: unspecified Qualified Code(s): R07.9 - Chest pain, unspecified Leukocytosis Qualifiers: Leukocytosis type: unspecified Qualified Code(s): D72.829 - Elevated white blood cell count, unspecified Disposition: ADMITTED INPATIENT 09 Certified Medical Emergency: Urgent Condition: Stable Referrals and Follow-Ups: Zora Madden [Primary Care Provider] - - Critical Care Note This patient required my direct & personal management of CC.: No Attestation - Physician/ SALINAS Attestation Patient care was provided by Advanced Practice Provider:: Yes Advanced Practice Provider:: Darcy Barahona Advanced Practice Provider documentation review:: The Mid-level provider documentation, treatment plan and medical decision making was reviewed by the physician who agrees with all treatment and medical decision making by the MLP. The physician spent face to face time with patient:: No Advanced Practice Provider documentation review:: Supervising physician onsite and consulted in the evaluation and care of this patient. The physician did not have a face to face encounter with the patient.
[2019-05-11 10:48] LABS: BASO# 0.03 X1000 (0.0-0.2); BASO% 0.2 % (0.0-0.8); EOS# 0.19 X1000 (0.0-0.7); EOS% 1.3 % (0.0-10.0); HEMATOCRIT 38.4 % (37.0-47.0); HEMOGLOBIN 12.3 g/dL (12.0-16.0); IMM GRAN# 0.06 X1000 (0.0-0.04); IMM GRAN% 0.4 % (0.0-0.5); LYMPH% 21.4 % (20.5-51.1); MCH 27.6 PG (27-31); MCV 86.3 FL (81-99); MONO# 0.68 X1000 (0.11-0.59); MONO% 4.7 % (1.7-9.3); MPV 10.6 FL (7.4-10.4); NEUT# 10.42 X1000 (1.4-6.5); PLT 288 X1000 (130-400); RBC 4.45 XMIL (4.2-5.4); RDW 13.3 % (11.5-14.5); WBC 14.48 X1000 (4.8-10.8)
[2019-05-11] MEDS ORDERED: NITROGLYCERIN LINGUAL SPRAY SL ONE ×2 (11:14)
--- NOTE | 2019-05-11 11:47 | EKG Report ---
Test Performed on : 05/11/2019 10:06:40 AM Test Reason : CP Blood Pressure : / mmHG Vent. Rate : 083 BPM Atrial Rate : 083 BPM P-R Int : 134 ms QRS Dur : 068 ms QT Int : 374 ms P-R-T Axes : 063 -06 027 degrees QTc Int : 439 ms Normal sinus rhythm. Possible Left atrial enlargement Left ventricular hypertrophy Abnormal ECG When compared with ECG of 20-OCT-2018 04:25, No significant change was found Unconfirmed Result
[2019-05-11 11:49] LABS: AGAP 18; BUN 14 mg/dL (8-22); CALCIUM 10.1 mg/dL (8.8-10.2); CHLORIDE 111 mmol/L (98-107); CK PROFILE 119 U/L (24-173); COSMO 299; CREATININE 1.1 mg/dL (0.5-0.9); GLUCOSE 101 mg/dL (70-104); POTASSIUM 4.3 mmol/L (3.5-5.1); SODIUM 150 mmol/L (136-145); TCO2 21 mmol/L (25-35)
[2019-05-11] MEDS ORDERED: G.I. COCKTAIL PO ONE (12:33)
--- NOTE | 2019-05-11 12:56 | Diag Imaging Result Doc PS360 ---
EXAM: CHEST-1 VIEW HISTORY: chest pain, sob TECHNIQUE: Single view COMPARISON: 10/20/2018 FINDINGS: Poor inspiratory effort. The heart is not enlarged. The vessels are not distended. There are no infiltrates. No effusion identified. There is a right-sided ventricular peritoneal shunt catheter. IMPRESSION: Negative exam. Electronically signed by Migel Youssef 05/11/2019 12:54 PM
[2019-05-11] MEDS ORDERED: ZANAFLEX PO PRN (14:00)
[2019-05-11] MEDS ORDERED: TYLENOL PO PRN (14:00)
[2019-05-11] MEDS ORDERED: ZOFRAN IV PRN (14:00)
[2019-05-11] MEDS ORDERED: NITROGLYCERIN SL PRN (14:00)
--- NOTE | 2019-05-11 16:31 | HISTORY AND PHYSICAL ---
PRIMARY CARE PROVIDER: Dr. Zora Madden. CHIEF COMPLAINT: Chest pain. HISTORY OF PRESENT ILLNESS: Ms. David Robb is a 48-year-old female with a medical history of hemorrhagic stroke in 2011 with history of hydrocephalus and [employer] shunt. Apparently, she was here back in September with the same complaints with no actual diagnosis of coronary disease. 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 It felt like it had radiated into her throat. No nausea, sweating, or dizziness. When she would sit down it would ease the pain, but when she would get back up with activity, it would worsen again. She also has a headache and just feels like her throat is a little more swollen, but there is no swelling of the throat upon examination. She is maintaining her O2 saturations. First set of cardiac enzymes are negative. EKG is negative for any ST changes. So we will make her n.p.o. after midnight. We will consult Cardiology and get her in for a cardiac stress test. We will also check a hemoglobin A1c and a lipid panel and start her on low-dose aspirin. PAST MEDICAL HISTORY: 1. Hydrocephalus with [employer] shunt. 2. History of hemorrhagic stroke in 2011. 3. Hypertension. 4. Asthma. 5. Crohn's disease. 6. History of diverticulitis. 7. Morbid obesity with a BMI of 40.3. 8. Migraines. SURGICAL HISTORY: 1. [employer]OR [employer] shunt. 2. Sinus surgery. 3. Tubal ligation. 4. Hysterectomy. 5. Appendectomy. 6. Tonsillectomy. SOCIAL HISTORY: Melany is at the bedside. She does not work. She denies tobacco, alcohol, or illicit drug use. FAMILY HISTORY: Both parents with high blood pressure. Mother also with diabetes. ALLERGIES: Levaquin, morphine. HOME MEDICATIONS: 1. Hydroxyzine 50 mg p.o. as needed. 2. Bupap 50/300 one tablet p.o. p.r.n. 3. Cozaar 50 mg p.o. daily. 4. Depakote 500 mg p.o. twice daily. 5. Ferrous sulfate 325 mg p.o. twice daily. 6. Folic acid 1 mg p.o. daily. 7. Imuran 50 mg p.o. twice daily. 8. Lasix 20 mg p.o. daily. 9. Osteo Bi-Flex tablet t.i.d. 10. Prilosec 20 mg p.o. daily. 11. Slow-Mag 71.5 mg p.o. daily. 12. Topamax 200 mg p.o. daily. 13. Tylenol codeine #4 one p.o. p.r.n. 14. Vitamin C 500 mg p.o. twice daily. 15. Vitamin D 1000 units p.o. twice weekly. 16. Zanaflex 4 mg p.o. every 4 hours p.r.n. 17. Ziac which is bisoprolol hydrochlorothiazide 5/6.25 one tablet p.o. every 7 days. 18. Zyrtec 10 mg p.o. daily. REVIEW OF SYSTEMS: Fourteen point review of systems are complete and all were negative except for those mentioned above in HPI. PHYSICAL EXAMINATION: VITAL SIGNS: Temperature 98.2 degrees, heart rate 89, respiratory rate 23, blood pressure 154/93, O2 saturation 95% on room air. She is 5 feet 5 inches tall, 242 pounds, BMI is 40.3. GENERAL: Ms. David Robb is a 48-year-old female. She is in no acute distress. She is able answer questions appropriately. HEENT: Atraumatic, normocephalic. Pupils equal, round, reactive to light. Extraocular movements intact. Mucous membranes are dry. NECK: Trachea midline. CARDIOVASCULAR: S1, S2. Regular rate and rhythm. No rubs, gallops, murmurs. No lower extremity edema. There are +2 dorsalis and radial pulses. Negative JVD or carotid bruits. Palpating the chest wall reproduces some of the chest pain. PULMONARY: Clear to auscultation. Bilateral breath sounds. No accessory muscle use or work of breathing noted. GI: Soft, nontender, nondistended. Positive bowel sounds x4. EXTREMITIES: Moves all extremities equally. Full range of motion. NEUROLOGIC: A O x3. Follows commands. Sensory is intact. SKIN: Warm, dry, intact. LABORATORY DATA: White blood cells 14,000, hemoglobin 12, hematocrit 38, platelet count 288,000. Sodium 150, potassium 4.3, BUN 14, creatinine 1.1, glucose 101, calcium 10. CK 119. Troponin is less than 0.01. IMAGING: Chest x-ray: Negative. EKG: Normal sinus rhythm with possible left atrial enlargement, left ventricular hypertrophy, rate 83, QTc is 439. ASSESSMENT AND PLAN: 1. Atypical chest pain. This is the second time she has come in with these complaints since September and so we will get a Cardiology consult. We will order a stress test. She has had an echocardiogram that was performed in September on her last admission which showed normal LV size with ejection fraction 60 to 65%. Essentially a normal echo. We will do serial cardiac enzymes, nitroglycerin for pain. 2. History of hemorrhagic stroke in 2011 with a [employer] shunt secondary to hydrocephalus and complaints of migraine. We will continue her home medications for this. She states she takes Depakote for it and several other medications. We will get those resumed. 3. History of asthma. No exacerbation. 4. Crohn disease. Stable. 5. Hypertension. Home medications resumed. Blood pressure is stable. 6. Deep venous thrombosis prophylaxis. SCDs. Dictated by AARON Peguero for Jose Castaneda MD Addendum: Patient seen and examined by myself. Agree with AARON note. It reflects my assessment and plan. Patient is being admitted to hospital for chest pain workup. Will trend troponins, echocardiogram and will order Lexiscan as well. cc: AARON Peguero MD [facility]
[2019-05-11] MEDS: FERROUS SULFATE PO SCH (17:36)
[2019-05-11 19:12] LABS: URINE SOURCE CLEAN CATCH
[2019-05-11 19:14] LABS: BILIRUBIN URINE NEGATIVE (NEGATIVE); BLOOD URINE NEGATIVE (NEGATIVE); COLOR YELLOW; GLUCOSE URINE NEGATIVE (NEGATIVE); KETONE URINE NEGATIVE (NEGATIVE); LEUKOCYTES URINE NEGATIVE (NEGATIVE); NITRITE URINE NEGATIVE (NEGATIVE); PROTEIN URINE NEGATIVE (NEGATIVE); SP GRAVITY URINE 1.015; TURBIDITY URINE CLEAR (CLEAR); UROBILINOGEN URINE NORMAL (NORMAL)
[2019-05-11 19:17] LABS: UR EPITHELIAL CELLS <10 /HPF (<10); URINE BACTERIA NEGATIVE /HPF; URINE RBC <10 /HPF (<10); URINE WBC <10 /HPF (<10)
[2019-05-11] MEDS: IMURAN PO SCH (20:56)
[2019-05-11] MEDS: DEPAKOTE ER PO SCH (20:56)
[2019-05-11] MEDS: VITAMIN C PO SCH (20:56)
--- NOTE | 2019-05-12 06:52 | EKG Report ---
Test Performed on : 05/12/2019 06:40:41 AM Test Reason : chest pain Blood Pressure : / mmHG Vent. Rate : 087 BPM Atrial Rate : 087 BPM P-R Int : 146 ms QRS Dur : 068 ms QT Int : 378 ms P-R-T Axes : 065 -03 017 degrees QTc Int : 454 ms Normal sinus rhythm. Possible Left atrial enlargement Left ventricular hypertrophy Abnormal ECG When compared with ECG of 11-MAY-2019 10:06, (Unconfirmed) No significant change was found Unconfirmed Result
[2019-05-12] MEDS ORDERED: PRILOSEC PO SCH (07:00)
[2019-05-12] MEDS ORDERED: LEXISCAN ONE (07:51)
[2019-05-12] MEDS ORDERED: TOPAMAX PO SCH (09:00)
[2019-05-12] MEDS ORDERED: ZYRTEC PO SCH (09:00)
[2019-05-12] MEDS ORDERED: FOLIC ACID PO SCH (09:00)
[2019-05-12] MEDS ORDERED: SLOW-MAG PO SCH (09:00)
[2019-05-12] MEDS ORDERED: LASIX PO SCH (09:00)
[2019-05-12] MEDS ORDERED: COZAAR PO SCH (09:00)
[2019-05-12] MEDS ORDERED: ASPIRIN EC PO SCH (09:00)
[2019-05-12] MEDS ORDERED: AMINOPHYLLINE ONE (10:01)
[2019-05-12] MEDS: DEPAKOTE ER PO SCH (10:35)
[2019-05-12] MEDS: VITAMIN C PO SCH (10:36)
[2019-05-12] MEDS: IMURAN PO SCH (10:36)
[2019-05-12] MEDS: FERROUS SULFATE PO SCH (10:36)
[2019-05-12 10:55] VITALS: BP 142/94
[2019-05-12 11:24] LABS: BASO# 0.02 X1000 (0.0-0.2); BASO% 0.1 % (0.0-0.8); EOS# 0.14 X1000 (0.0-0.7); HEMATOCRIT 39.8 % (37.0-47.0); HEMOGLOBIN 12.5 g/dL (12.0-16.0); IMM GRAN# 0.05 X1000 (0.0-0.04); IMM GRAN% 0.4 % (0.0-0.5); LYMPH# 2.99 X1000 (1.2-3.4); MCH 27.3 PG (27-31); MCHC 31.4 g/dL (33-37); MCV 86.9 FL (81-99); MONO# 0.58 X1000 (0.11-0.59); MONO% 4.3 % (1.7-9.3); MPV 10.5 FL (7.4-10.4); NEUT% 72.2 % (42.2-75.2); PLT 298 X1000 (130-400); RBC 4.58 XMIL (4.2-5.4); RDW 13.4 % (11.5-14.5); WBC 13.58 X1000 (4.8-10.8)
[2019-05-12 11:28] LABS: INR 1.11; PROTIME 14.4 Seconds (11.0-16.0)
[2019-05-12 11:29] LABS: PTT 30.6 Seconds (22.3-41.8)
[2019-05-12 11:41] LABS: HEMOGLOBIN A1C 4.7 % (4.8-6.0)
[2019-05-12 11:50] LABS: AGAP 10; ALB/GLOB RATIO 1.6; ALBUMIN 4.2 g/dL (3.5-5.0); ALKALINE PHOSPHATASE 69 U/L (32-104); BUN 14 mg/dL (8-22); CALCIUM 9.5 mg/dL (8.8-10.2); CHLORIDE 103 mmol/L (98-107); COSMO 280; CREATININE 1.1 mg/dL (0.5-0.9); ESTIMATED GFR > 60; GLUCOSE 104 mg/dL (70-104); GOT 10 U/L (10-30); GPT 8 U/L (10-36); MAGNESIUM 2.2 mg/dL (1.5-2.7); POTASSIUM 4.1 mmol/L (3.5-5.1); SODIUM 140 mmol/L (136-145); TCO2 27 mmol/L (25-35); TOTAL BILIRUBIN 0.56 mg/dL (0.20-1.00); TOTAL PROTEIN 6.9 g/dL (6.3-8.3)
[2019-05-12 11:51] LABS: AGAP 12; ALBUMIN 4.2 g/dL (3.5-5.0); BUN 14 mg/dL (8-22); CALCIUM 9.4 mg/dL (8.8-10.2); CHLORIDE 103 mmol/L (98-107); COSMO 282; CREATININE 1.1 mg/dL (0.5-0.9); ESTIMATED GFR > 60; GLUCOSE 105 mg/dL (70-104); PHOSPHORUS 2.9 mg/dL (2.7-4.5); SODIUM 141 mmol/L (136-145); TCO2 26 mmol/L (25-35)
--- NOTE | 2019-05-12 11:55 | CARDIOLOGY CONSULTATION ---
DATE: 05/12/2019 CHIEF COMPLAINT ON PRESENTATION: Chest pain. HISTORY OF PRESENT ILLNESS: Ms. Robb is a 48-year-old black female with a history of hypertension and Crohn disease. She presents with complaints of a stabbing-like chest pain that lasted for around a minute yesterday that began while standing in the kitchen. She had just finished washing dishes when she had the onset of this pain that was located in the mid chest, had some radiation over to the left. Shortly after, she began having a constricting like sensation in her throat. She had no other associated symptoms. There was no component with exertion. Later on that morning, she had another brief episode that occurred at rest. This lasted for a minute as well and then she subsequently came to the ER. She was seen for similar symptoms back in September 2018, but did not have a stress test at that time. PAST MEDICAL HISTORY: Significant for: 1. Hydrocephalus with previous [employer] shunt. 2. History of hemorrhagic stroke in 2011. 3. Hypertension. 4. Asthma. 5. Crohn disease. 6. Diverticulitis. 7. Morbid obesity. SOCIAL HISTORY: She does not smoke. No alcohol or illicit drugs. FAMILY HISTORY: Both parents with hypertension, her mother also had diabetes. REVIEW OF SYSTEMS: A 10 system review of systems is negative, except for those things mentioned in the HPI. PHYSICAL EXAMINATION: Vital Signs: She is afebrile. Heart rate is 75, blood pressure 142/94. General: She is in no acute distress. HEENT: Oropharynx is moist. Normal dentition. Eye examination is pink conjunctivae, white sclerae. Neck: Examination shows no obvious thyromegaly or thyroid tenderness. Cardiovascular: She sounds to be in a regular rate and rhythm. She has no murmur. She has no S3. No lower extremity edema. Chest: Exam is clear bilaterally. She has no increased work of breathing. Abdomen: Soft, nontender. She has no obvious organomegaly. Skin: Exam is warm and dry throughout without any rashes. Neurological: Moving all extremities well. She has no lateralizing deficits. PERTINENT DATA: Her chest x-ray was unremarkable for any significant abnormalities. Her initial EKG on the at 1006 hours shows sinus rhythm, no ischemic changes. Subsequent EKG on the at 0640 hours in the morning shows sinus rhythm, no ischemic changes. 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 LABORATORY DATA: White count 14.5, hematocrit 38, platelet count is 288. Sodium 150, potassium 4.3, BUN 14, creatinine is 1.1. Cardiac enzymes are negative times multiple sets. Those labs are from yesterday. ASSESSMENT: Ms. Robb is a 48-year-old female, who presents with atypical chest pain. PLAN: At this point, she has already had her nuclear scan. I will go down and review this. If this is unremarkable, she could likely be discharged for follow up with her primary care physician. cc: Mayito Howard MD
--- NOTE | 2019-05-12 18:31 | Diag Imaging Result Document ---
PROCEDURE NAME: MYOCARDIAL PERF SCAN, STR/REST - 05/12/2019 STUDY: Rest/stress Lexiscan myocardial perfusion study. INDICATION: Evaluation of chest pain. DESCRIPTION: The patient came into the nuclear lab and received a rest injection of technetium 99 sestamibi 14.6 mCi. Multiple tomographic views of the cardiac structures were obtained at rest. Subsequently, the patient underwent infusion of Lexiscan, 0.4 mg. At peak infusion, she was injected with technetium 99 sestamibi 44.9 mCi. Multiple tomographic views of the cardiac structures were obtained following the completion of the protocol. SUMMARY OF THE ELECTROCARDIOGRAPHIC PORTION OF THE STUDY: Resting ECG showed sinus rhythm with a rate of 75 beats per minute. Resting blood pressure is 129/81. Resting ECG shows a nonspecific T wave flattening. During the protocol, the heart rate increased to a maximum of 112 beats per minute. The blood pressure went up to 144/85. The ECG showed no significant abnormalities. At peak exercise or infusion, the ECG shows sinus tachycardia with a nonspecific T wave flattening. Following the completion of the test, the heart rate and blood pressure returned back to their baseline. In summary, the electrocardiographic response to infusion of Lexiscan appears to be nonspecific. SUMMARY OF THE MYOCARDIAL PERFUSION PORTION OF THE STUDY: Poststress tomographic views of the left ventricle showed a very focal apical anterior defect of mild severity. The rest images showed that this defect is mostly fixed. The polar plots revealed the same. There is a very tiny, partially reversible apical anterior defect. This involves a very small amount of myocardium. The review of the rotating/raw images showed large amount of breast tissue shadowing the cardiac silhouette with some slight change between the rest and the stress images. This is likely causing attenuation artifact. Gated SPECT shows normal ejection fraction of 82% with normal ventricular volumes and no wall motion abnormality. The lung/heart ratio is normal. The TID is normal. SUMMARY: This study shows: 1. Nonspecific electrocardiogram response to exercise. 2. Probably normal poststress myocardial perfusion scan. There is no scintigraphic evidence of any significant degree of inducible ischemia. The trivial partially reversible very tiny apical anterior defect probably represents shifting attenuation artifact between rest and stress images. 3. Normal left ventricular systolic function with ejection fraction of 82% with normal ventricular volumes and no wall motion abnormality. This study would suggest a low risk for ischemic events. cc: MD Jackie Finnegan CRNP
--- NOTE | 2019-05-13 08:10 | DISCHARGE SUMMARY ---
ADMISSION DATE: 05/11/2019 DISCHARGE DATE: 05/12/2019 DISCHARGE DIAGNOSES: 1. Atypical chest pain, resolved. 2. Hypertension. 3. Asthma. 4. Crohn's disease. 5. Diverticulitis. 6. Morbid obesity. CONSULTATIONS: Dr. Mayito Howard from cardiology. PROCEDURES: 1. Chest x-ray done on admission showed negative exam. 2. Lexiscan stress test was reported verbally okay. HOSPITAL COURSE: This is a 48-year-old, -[place] female with a past medical history of hypertension and Crohn's disease who presented to the emergency department complaining of stabbing- like chest pain that lasted around a minute. Considering her comorbidities, she was admitted to the hospital for chest pain workup. So far, the troponin has been negative. We have not checked ultrasound again because she had one from 2 months ago which was basically okay. The patient is going to be released in stable condition. DISCHARGE PHYSICAL EXAMINATION: Vital Signs: Temperature 97.9 degrees, heart rate 75, respiratory rate 19, blood pressure 142/94, O2 saturation 100% on room air. General Examination: This is a 48-year-old, -[place] female lying in bed, in no acute distress. Cardiovascular Examination: S1 and S2 heard. No murmurs, gallops, or rubs. Regular rate and rhythm. Respiratory Examination: Clear bilaterally to auscultation. No work of breathing or using accessory muscles. Abdomen: Soft, nontender to palpation. Bowel sounds present. No organomegaly. Extremities: No clubbing, cyanosis, or edema. Peripheral pulses present in both legs. Neurological Examination: The patient is alert and oriented x3. Moves 4 extremities. DISCHARGE DISPOSITION: Home to self-care. FOLLOWUP: With her primary care physician in a week. LIST OF MEDICATIONS: We are not making any changes to the current list of medications. cc: Jose Castaneda MD
== END 2019-05-12 12:45 | disposition home or self-care (01) | DRG 313 ==
LOC: ED 10:02 → EDIPHOLD 14:27 → 3N 17:07
PROVIDERS: ATTEND Internal Medicine